=== PATIENT | male | born 1970 | race Asian ===

== ENCOUNTER 2023-07-18 17:41 | Emergency (ER) | payer SELFPAY ==
[~2023-07-18] VITALS: Ht 167.6 cm; Wt 65.0 kg
[2023-07-18 17:47] VITALS: TEMP 98.5; O2SAT 99
[2023-07-18] MEDS ORDERED: IBUP-2029 MT (18:36)
[2023-07-18] MEDS: IBUPROFEN 600MG TABLET PO STA (18:51)
[2023-07-18 18:53] VITALS: BP 134/78; PULSE 78; RESP 20
== END 2023-07-18 18:54 | disposition home or self-care (01) ==
LOC: ER 17:41
DX: S09.90XA Unspecified injury of head, initial encounter (principal); X58.XXXA Exposure to other specified factors, initial encounter; Y93.89 Activity, other specified; Y92.89 Other specified places as the place of occurrence of the external cause; Y99.8 Other external cause status
CPT/HCPCS: 99284